=== PATIENT | male | born 1955 | race Caucasian/White ===

== ENCOUNTER 2016-08-26 12:55 | Emergency (ER) | payer OTHER ==
[2016-08-26] MEDS ORDERED: Sodium Chloride 0.9% 5 ML Syringe FLUSH PRN (13:07)
--- NOTE | 2016-08-26 13:16 | EDM.PDOC ---
ED HPI GENERAL MEDICAL PROBLEM - General Chief Complaint: Neurological Problem Stated Complaint: DIZZY,VOMITING Time Seen by Provider: 08/26/16 13:00 Source of Information: Reports: Patient History Limitations: Reports: No limitations - History of Present Illness INITIAL COMMENTS - FREE TEXT/NARRATIVE: 61 yo wm presents to ER with complaint dizziness that occurred suddenly with vertigo and vomiting. 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 Pt denies any headache, recent URI, or fever. Pt denies chest pain and shortness of breath. Pt reports his dizziness is positional and currently he doesn't want to lie down for fear of onset of symptoms. Pt denies syncope. Onset: sudden Onset Date: 08/26/16 Onset Time: 12:00 Duration: Resolved prior to arrival Improves with: Reports: Rest Worsens with: Reports: Movement Associated Symptoms: Reports: nausea/vomiting. Denies: confusion, chest pain, cough, cough w sputum, diaphoresis, fever/chills, headaches, loss of appetite, malaise, rash, seizure, shortness of breath, syncope, weakness denies Pain Score (Numeric/FACES): 0 - Related Data Allergies Allergy/AdvReac Type Severity Reaction Status Date / Time No Known Drug Allergies Allergy Cannot Verified 08/26/16 13:20 Remember Home Meds: Home Meds Aspirin [Lo-Dose Aspirin EC] 81 mg PO DAILY 08/26/16 [History] Chlorthalidone 25 mg PO DAILY 08/26/16 [History] Gabapentin [Neurontin] 600 mg PO BID 08/26/16 [History] Losartan Potassium 25 mg PO DAILY 08/26/16 [History] Naproxen Sodium [Aleve] 220 mg PO BID PRN 08/26/16 [History] Saxagliptin HCl [Onglyza] 5 mg PO DAILY 08/26/16 [History] Simvastatin [Zocor] 80 mg PO BEDTIME 08/26/16 [History] Tamsulosin HCl [Flomax] 0.4 mg PO DAILY 08/26/16 [History] glipiZIDE [Glipizide ER] 10 mg PO BID 08/26/16 [History] metFORMIN HCl [Metformin HCl ER] 1,000 mg PO BID 08/26/16 [History] ED ROS GENERAL - Review of Systems Review Of Systems: See Below Constitutional: Reports: no symptoms HEENT: Reports: No symptoms Respiratory: Reports: No Symptoms Cardiovascular: Reports: No symptoms Endocrine: Reports: no symptoms GI/Abdominal: Reports: No symptoms : Reports: no symptoms Musculoskeletal: Reports: no symptoms Skin: Reports: no symptoms Neurological: Reports: No Symptoms Psychiatric: Reports: No symptoms Hematologic/Lymphatic: Reports: no symptoms Immunologic: Reports: no symptoms ED EXAM, DIZZINESS - Physical Exam Exam: See Below Exam Limited By: No limitations General Appearance: alert, WD/WN, no apparent distress Nystagmus: reproducible Ears: normal external exam, normal canal, hearing grossly normal, normal TMs Nose: normal inspection, normal mucosa, no blood Throat/Mouth: Normal inspection, Normal lips, Normal teeth, Normal gums, Normal oropharynx, Normal voice, No airway compromise Head Exam: atraumatic, normocephalic Vertigo: reproducible Neck: normal inspection, supple, non-tender, full range of motion Respiratory/Chest: no respiratory distress, lungs clear, normal breath sounds, no accessory muscle use, chest non-tender Cardiovascular: normal peripheral pulses, regular rate, rhythm, no edema, no gallop, no JVD, no murmur, no rub GI/Abdominal: Normal Bowel Sounds, Soft, Non-Tender, No Organomegaly, No Distention, No Abnormal Bruit, No Mass Neurological: alert, normal mood/affect, normal dorsiflexion, CN II-XII intact, normal plantar flexion, normal gait, normal reflexes, no motor/sensory deficits , oriented x 3 Back Exam: normal inspection, full range of motion, NT Extremities: normal inspection, normal range of motion, non-tender, no pedal edema, normal capillary refill Psychiatric: normal affect, normal mood Skin Exam: Warm, Dry, Intact, Normal color, No rash EKG INTERPRETATION EKG Date: 08/26/16 Time: 13:12 Rhythm: NSR Rate (beats/min): 68 [place]: normal P-wave: present QRS: normal ST-T: normal QT: normal Comparison: NA - no prior EKG Course - Vital Signs Last Recorded V/S: Last Vital Signs Temp 36.8 C 08/26/16 12:55 Pulse 67 08/26/16 12:55 Resp 20 08/26/16 12:55 BP 156/65 H 08/26/16 12:55 Pulse Ox 97 08/26/16 12:55 - Orders/Labs/Meds Orders: Active Orders 24 hr Category Date Time Status EKG Documentation Completion [RC] ASDIRECTED Care 08/26/16 13:09 Active Peripheral IV Care [RC] . DIRECTED Care 08/26/16 13:08 Active Chest 1V Frontal [CR] Stat Exams 08/26/16 13:07 Taken Head wo Cont [CT] Stat Exams 08/26/16 13:07 Taken URINALYSIS W/MICROSCOPIC [UA W/MICROSCOPIC] [URIN] Stat Lab 08/26/16 13:07 Uncollected Sodium Chloride 0.9% [Syrex Flush] Med 08/26/16 13:07 Active 5 ml FLUSH Q8HR PRN Peripheral IV Insertion Adult [OM.PC] Routine Oth 08/26/16 13:07 Ordered EKG 12 Lead [EK] Routine Ther 08/26/16 13:09 Ordered Medication Orders Sodium Chloride (Syrex Flush) 5 ml FLUSH Q8HR PRN PRN Reason: Keep Vein Open Labs: Laboratory Tests 08/26/16 08/26/16 Range/Units 13:20 13:20 WBC 9.1 (5.0-10.0) 10^3/uL RBC 4.36 L (4.50-6.00) 10^6/uL Hgb 14.2 (13.0-17.0) g/dL Hct 40.7 (40.0-52.0) % MCV 93.4 H (82.0-92.0) fL MCH 32.6 H (27.0-31.0) pg MCHC 34.9 (32.0-36.0) g/dL RDW 12.9 (11.5-14.5) % Plt Count 242 (150-300) 10^3/uL MPV 7.5 (7.4-10.4) fL Neut % (Auto) 77.7 H (50.0-70.0) % Lymph % (Auto) 14.0 L (20.0-40.0) % [place] % (Auto) 5.9 (2.0-8.0) % Eos % (Auto) 1.8 (1.0-3.0) % Baso % (Auto) 0.6 (0.0-1.0) % Neut # (Auto) 7.0 (2.5-7.0) 10^3/uL Lymph # (Auto) 1.3 (1.0-4.0) 10^3/uL [place] # (Auto) 0.5 (0.1-0.8) 10^3/uL Eos # (Auto) 0.2 (0.1-0.3) 10^3/uL Baso # (Auto) 0.1 (0.0-0.1) 10^3/uL Sodium 141 (136-145) mmol/L Potassium 4.7 (3.3-5.3) mmol/L Chloride 102 (98-115) mmol/L Carbon Dioxide 30.7 (21.0-32.0) mmol/L BUN 27 H (6-25) mg/dL Creatinine 1.40 H (0.51-1.17) mg/dL Est Cr Clr Drug Dosing 61.59 mL/min Estimated GFR (MDRD) 52 mL/min Glucose 174 H (70-110) mg/dL Calcium 9.2 (8.7-10.3) mg/dL Total Bilirubin 0.6 (0.2-1.0) mg/dL AST 29 (15-37) U/L ALT 51 (12-78) U/L Alkaline Phosphatase 53 (46-116) IU/L Creatine Kinase 262 (26-276) U/L CK-MB (CK-2) 3.00 (0.00-4.30) ng/mL Troponin I < 0.04 (0.00-0.070) ng/mL Total Protein 6.9 (6.4-8.2) g/dL Albumin 4.06 (3.00-4.80) g/dL Meds: Medications Generic Name Dose Route Start Last Admin Trade Name Freq PRN Reason Stop Dose Admin Sodium Chloride 5 ml 08/26/16 13:07 Syrex Flush FLUSH Q8HR PRN Keep Vein Open - Radiology Interpretation Free Text/Narrative:: CXR- NAD CT HEAD- NAD Departure - Departure Time of Disposition: 14:02 Disposition: Home, Self-Care 01 Condition: good Clinical Impression: Benign paroxysmal vertigo Qualifiers: Laterality: unspecified laterality Qualified Code(s): H81.10 - Benign paroxysmal vertigo, unspecified ear - Discharge Information Instructions: Vertigo Referrals: PCP,Not In Area [Primary Care Provider] - [place],Maria Victoria A, MD [Physician] - - My Orders Last 24 Hours: My Active Orders 08/26/16 13:07 Chest 1V Frontal [CR] Stat Head wo Cont [CT] Stat URINALYSIS W/MICROSCOPIC [UA W/MICROSCOPIC] [URIN] Stat Sodium Chloride 0.9% [Syrex Flush] 5 ml FLUSH Q8HR PRN Peripheral IV Insertion Adult [OM.PC] Routine 08/26/16 13:08 Peripheral IV Care [RC] . DIRECTED 08/26/16 13:09 EKG Documentation Completion [RC] ASDIRECTED EKG 12 Lead [EK] Routine - Assessment/Plan Last 24 Hours: My Active Orders 08/26/16 13:07 Chest 1V Frontal [CR] Stat Head wo Cont [CT] Stat URINALYSIS W/MICROSCOPIC [UA W/MICROSCOPIC] [URIN] Stat Sodium Chloride 0.9% [Syrex Flush] 5 ml FLUSH Q8HR PRN Peripheral IV Insertion Adult [OM.PC] Routine 08/26/16 13:08 Peripheral IV Care [RC] . DIRECTED 08/26/16 13:09 EKG Documentation Completion [RC] ASDIRECTED EKG 12 Lead [EK] Routine Assessment:: 1. Vertigo resolved 2. Mild renal insufficiency 3. hyperglycemia Plan: 1. Discharge home 2. suggested Antivert, zofran in case symptoms return but pt refused. 3. Instructed patient to follow up [facility] for further evaluation and treatment 4. Instructed to return to ER for worsening symptoms
[2016-08-26 13:28] VITALS: BP 156/65
[2016-08-26 13:58] LABS: CHLORIDE,CL 102 mmol/L (98-115); SODIUM,NA 141 mmol/L (136-145)
== END 2016-08-26 14:10 | disposition home or self-care (01) ==
LOC: KA.ED 12:55
DX: H81.10 Benign paroxysmal vertigo, unspecified ear (principal); Z79.82 Long term (current) use of aspirin; Z79.899 Other long term (current) drug therapy; Z79.84 Long term (current) use of oral hypoglycemic drugs
CPT/HCPCS: 36415; 70450; 71010; 80053; 82550; 82553; 84484; 85025; 93005; 99284

== ENCOUNTER 2021-07-19 09:20 | Emergency (ER) | payer OTHER ==
[2021-07-19 10:13] LABS: ANION GAP 12.1 mmol/L (5-15)
[2021-07-19] MEDS ORDERED: Sodium Chloride 0.9% 10 ML Syringe FLUSH PRN (10:51)
[2021-07-19] MEDS ORDERED: Sodium Chloride 0.9% 1,000 ML IV ONE (10:51)
[2021-07-19] MEDS ORDERED: Iopamidol 755 Mg/ML 75 ML Bottle IVPUSH ONE (11:00)
[2021-07-19] MEDS ORDERED: Sodium Chloride 0.9% 50 ML IV ONE (11:01)
[2021-07-19 12:15] VITALS: BP 176/93; PULSE 76
[2021-07-19] MEDS ORDERED: Benzonatate 100 MG Cap PO PRN (12:38)
== END 2021-07-19 13:00 | disposition home or self-care (01) ==
LOC: KA.ED 09:20
DX: J18.9 Pneumonia, unspecified organism (principal); R56.9 Unspecified convulsions; R06.02 Shortness of breath; E78.00 Pure hypercholesterolemia, unspecified; I11.9 Hypertensive heart disease without heart failure; E11.42 Type 2 diabetes mellitus with diabetic polyneuropathy; R79.89 Other specified abnormal findings of blood chemistry; Z79.82 Long term (current) use of aspirin; Z79.899 Other long term (current) drug therapy
CPT/HCPCS: 36415; 71046; 71275; 80053; 83605; 83880; 84484; 85025; 85379; 87040; 93005; 93010; 99284; 99285-25; A9270-GY; J7030; Q9967